=== PATIENT | male | born 1945 | race Caucasian/White ===

== ENCOUNTER 2017-07-23 07:37 | Day surgery (SDC) | payer MEDICARE ==
[2017-07-22 12:10] VITALS: BP 180/80
[2017-07-22 12:29] LABS: BASOPHILS % (AUTO) 0.4 % (0.0-5.0); EOSINOPHILS % (AUTO) 3.5 % (0.0-8.0); HEMATOCRIT 42.6 % (42-54); LYMPHOCYTES % (AUTO) 28.7 % (21.0-51.0); MEAN CORPUSCULAR HEMOGLOBIN 31.3 pg (27.0-33.0); MEAN CORPUSCULAR HGB CONC 34.6 g/dL (32.0-36.0); MEAN CORPUSCULAR VOLUME 90.5 fL (79-99); NEUTROPHILS % (AUTO) 59.4 % (40.0-77.0); PLATELET COUNT (AUTO) 204 K/uL (130-400); RED BLOOD CELL COUNT(AUTO) 4.71 MIL/uL (4.50-6.20); RED CELL DISTRIBUTION WIDTH 13.1 % (11.0-15.5); WHITE BLOOD COUNT (AUTO) 6.1 K/uL (4.8-10.8)
[2017-07-22 12:29] LABS: APPEARANCE,URINE Clear (CLEAR); BILIRUBIN,URINE Negative (NEGATIVE); COLOR,URINE Yellow (YELLOW); GLUCOSE, URINE (UA) TRACE mg/dL (NEGATIVE); KETONES,URINE Negative (NEGATIVE); LEUKOCYTE ESTERASE ,URINE Negative (NEGATIVE); NITRATE,URINE Negative (NEGATIVE); OCCULT BLOOD,URINE Negative (NEGATIVE); PROTEIN,URINE Negative (NEGATIVE)
[2017-07-22 12:37] LABS: BACTERIA,URINE Rare /HPF (None Seen); MUCUS,URINE Few LPF (None Seen); RBC,URINE 0-1 /HPF (0-1); SQUAMOUS EPITHELIAL CELL,UR Rare /LPF (0-2); WBC,URINE 0-1 /HPF (0-1)
[2017-07-22 12:42] LABS: INR 0.95 (0.85-1.15); PARTIAL THROMBOPLASTIN TIME 25.4 SEC (26.3-35.5)
[2017-07-22 12:45] LABS: POTASSIUM 5.2 mmol/L (3.5-5.1)
[2017-07-23] VITALS (13 sets, daily range): BP systolic 111–168; BP diastolic 61–87
[~2017-07-23] VITALS: Ht 188 cm; Wt 96.6 kg
[~2017-07-23 07:37] MED LIST: ASPI-1181 PO; ATOR40TA71 PO; CARV3.12 PO; METF500T6 PO
[2017-07-23] MEDS ORDERED: SODIUM CHLORIDE 0.9% 1000ML 1,000 ML IV ONE (09:25)
[2017-07-23] MEDS ORDERED: ISOVUE-370 50ML VIAL IV ONE (10:48)
[2017-07-23] MEDS ORDERED: LIDOCAINE HCL 2% 20ML ONE (10:48)
[2017-07-23] MEDS ORDERED: HEPARIN SODIUM 1000UNIT/ML 10ML VIAL ONE (10:48)
[2017-07-23] MEDS ORDERED: IOPAMIDOL-370 100 ML VIAL IV ONE (10:48)
[2017-07-23] MEDS ORDERED: LABETALOL 20 MG/4 ML DISP.SYRIN IV ONE (10:59)
[2017-07-23] MEDS ORDERED: NITROGLYCERIN 4.1 GM SPRAY TL ONE (11:09)
[2017-07-23] MEDS ORDERED: METO25TA6 PO (11:28)
[2017-07-23] MEDS ORDERED: VALS160T2 PO (11:28)
[2017-07-23] MEDS ORDERED: INSULIN HUMULIN R 100 UNIT/ML 3ML SQ SCH (11:30)
[2017-07-23] MEDS ORDERED: GLUCAGON 1MG KIT 1 MG ML IM PRN (11:30)
[2017-07-23] MEDS ORDERED: SODIUM CHLORIDE 0.9% 10 ML VIAL IVP SCH (11:30)
[2017-07-23] MEDS ORDERED: METOPROLOL TARTRATE 25 MG TAB PO SCH (11:30)
[2017-07-23] MEDS ORDERED: DEXTROSE 50%-WATER 50 ML DISP.SYRIN IV PRN (11:30)
[2017-07-23] MEDS ORDERED: LOSARTAN 100 MG TABLET PO SCH (11:44)
== END 2017-07-23 17:49 | disposition home or self-care (01) ==
LOC: DAH 07:37
PROVIDERS: ATTEND Internal Medicine Cardiovascular Disease
DX: I25.119 Atherosclerotic heart disease of native coronary artery with unspecified angina pectoris (principal); I10 Essential (primary) hypertension; E11.9 Type 2 diabetes mellitus without complications; R78.5 Finding of other psychotropic drug in blood
CPT/HCPCS: 36415 ×2; 71045; 80048; 81001; 82948 ×2; 84132; 85025; 85610; 85730; 93005; 93458; A4606; C1760; C1894; J1644; J3490; J7030; Q9967 ×2

== ENCOUNTER 2017-08-03 11:45 | Inpatient (IN) | payer MEDICARE ==
[~2017-08-03] VITALS: Ht 188 cm; Wt 99.9 kg
[~2017-08-03 11:45] MED LIST changes: -CARV3.12 PO; -METF500T6 PO; +METO25TA6 PO; +VALS160T2 PO
[2017-08-03 12:11] LABS: BASOPHILS % (AUTO) 0.5 % (0.0-5.0); EOSINOPHILS % (AUTO) 4.1 % (0.0-8.0); HEMATOCRIT 43.4 % (42-54); LYMPHOCYTES % (AUTO) 27.3 % (21.0-51.0); MEAN CORPUSCULAR HEMOGLOBIN 31.7 pg (27.0-33.0); MEAN CORPUSCULAR VOLUME 90.6 fL (79-99); MONOCYTES % (AUTO) 7.6 % (3.0-13.0); NEUTROPHILS % (AUTO) 60.5 % (40.0-77.0); PLATELET COUNT (AUTO) 197 K/uL (130-400); RED CELL DISTRIBUTION WIDTH 13.4 % (11.0-15.5); WHITE BLOOD COUNT (AUTO) 7.7 K/uL (4.8-10.8)
[2017-08-03 12:17] LABS: HEMOGLOBIN A1C 8.5 % (4.0-6.0)
[2017-08-03 12:25] LABS: CREATININE 1.1 mg/dL (0.5-1.5); POTASSIUM 4.8 mmol/L (3.5-5.1); TOTAL PROTEIN, SERUM 7.5 g/dL (6.0-8.3)
[2017-08-03 12:42] VITALS: BP 145/73
[2017-08-03] MEDS ORDERED: METF10004 PO (12:47)
[2017-08-03 12:51] LABS: INR 0.92 (0.85-1.15); PARTIAL THROMBOPLASTIN TIME 25.2 SEC (26.3-35.5); PROTHROMBIN TIME 9.7 SEC (9.6-11.6)
[2017-08-04] VITALS (14 sets, daily range): BP systolic 94–180; BP diastolic 44–70
[2017-08-04] MEDS: CEFUROXIME SODIUM 1.5 GM VIAL IVP SCH ×2 (07:30→16:15)
[2017-08-04] MEDS ORDERED: MILRINONE-D5W 20 MG/100 ML 0 ML IV ONE (08:35)
[2017-08-04] MEDS ORDERED: NOREPINEPHRINE BITARTRATE 1 MG/1 ML ML IV ONE (08:35)
[2017-08-04] MEDS ORDERED: GLYCOPYRROLATE 0.2 MG/ML 5 ML VIAL ONE (08:35)
[2017-08-04] MEDS ORDERED: ROCURONIUM BROMIDE 10MG/1ML 5ML VL ONE ×3 (08:35→18:53)
[2017-08-04] MEDS ORDERED: PROPOFOL 10 MG/ML 20ML VIAL IV ONE (08:35)
[2017-08-04] MEDS ORDERED: HEPARIN SODIUM 1000UNIT/ML 10ML VIAL ONE (08:35)
[2017-08-04] MEDS ORDERED: EPINEPHRINE 1 MG/ML AMPULE ONE (08:35)
[2017-08-04] MEDS ORDERED: AMIODARONE HCL 900MG/18ML IV ONE ×2 (08:35→22:17)
[2017-08-04] MEDS ORDERED: LIDOCAINE PF 2% 5ML ABBOJECT ONE ×2 (08:35→18:34)
[2017-08-04] MEDS ORDERED: PROTAMINE SULFATE 10 MG/ML 25ML VIAL IV ONE (08:35)
[2017-08-04] MEDS ORDERED: AMINOCAPROIC ACID 250 MG/ML 20 ML VIAL IV ONE (08:35)
[2017-08-04] MEDS ORDERED: ESMOLOL HCL 10 MG/ML 10 ML VIAL ONE (08:35)
[2017-08-04] MEDS ORDERED: MIDAZOLAM HCL 1 MG/ML 5ML VIAL ONE (08:36)
[2017-08-04] MEDS ORDERED: FENTANYL CITRATE PF 50 MCG/1 ML 5ML AMP IV ONE ×4 (08:37→18:44)
[2017-08-04] MEDS ORDERED: OCTYL 2-CYANOACRYLATE 1 EACH TP ONE (09:34)
[2017-08-04] MEDS ORDERED: PAPAVERINE HCL 30 MG/ML 2ML VIAL ONE (09:34)
[2017-08-04] MEDS ORDERED: BACITRACIN 50,000 UNIT VIAL ONE (09:35)
[2017-08-04] MEDS ORDERED: SODIUM CHLORIDE 0.9% 1000ML 1,000 ML IV ONE (09:55)
[2017-08-04] MEDS ORDERED: NITROGLYCERIN 50 MG/D5% WATER 1 BOT ONE (09:56)
[2017-08-04] MEDS ORDERED: THROMBIN-JMI 5000 UNIT/VIAL TP ONE (16:57)
[2017-08-04 17:11] LABS: ABG BASE EXCESS -2.9 mmol/L (-2.0-3.0); ABG HCO3 21.8 mmol/L (21.0-28.0); ABG OXYGEN SATURATION 99.4 % (95.0-99.0); ABG PCO2 38 mmHg (35-48)
[2017-08-04] MEDS ORDERED: SODIUM BICARB 50MEQ 50ML VIAL ONE ×2 (17:25→18:51)
[2017-08-04 18:22] LABS: ABG BASE EXCESS -8.2 mmol/L (-2.0-3.0); ABG HCO3 17.5 mmol/L (21.0-28.0); ABG OXYGEN SATURATION 99.1 % (95.0-99.0); ABG PCO2 37 mmHg (35-48)
[2017-08-04] MEDS ORDERED: SODIUM CHLORIDE 0.9% 500ML 500 ML IV SCH (18:26)
[2017-08-04] MEDS ORDERED: NITROGLYCERIN 50 MG/D5% WATER 250 BOT IV SCH (18:30)
[2017-08-04] MEDS ORDERED: POTASSIUM PHOS 15 mMOL+NS250ML 250 ML IV PRN (18:30)
[2017-08-04] MEDS ORDERED: HYDROCODONE/ACETAMINOPHEN 5/325 MG TAB PO PRN (18:30)
[2017-08-04] MEDS ORDERED: INSULIN REGULAR, HUMAN 3ML 100 UNIT in SODIUM CHLORIDE 0.9% 99 ML IV SCH ×2 (18:30)
[2017-08-04] MEDS ORDERED: SODIUM BICARB 8.4% 50ML SYRINGE IV PRN (18:30)
[2017-08-04] MEDS ORDERED: ACETAMINOPHEN 650 MG SUPPOSITORY RC PRN (18:30)
[2017-08-04] MEDS ORDERED: DEXTROSE 50%-WATER 50 ML DISP.SYRIN IV PRN (18:30)
[2017-08-04] MEDS ORDERED: MORPHINE SULFATE 2 MG/ML 1ML SYG IV PRN (18:30)
[2017-08-04] MEDS ORDERED: PROPOFOL 1000 MG/100 ML 100 ML IV PRN (18:30)
[2017-08-04] MEDS ORDERED: NICARDIPINE HCL 100 MG in SODIUM CHLORIDE 0.9% 100 ML IV PRN (18:30)
[2017-08-04] MEDS ORDERED: CALCIUM GLUCONATE 1 GM in SODIUM CHLORIDE 0.9% 50 ML IV PRN (18:30)
[2017-08-04] MEDS ORDERED: ALBUMIN (HUMAN) 5% 250 ML IV PRN (18:30)
[2017-08-04] MEDS ORDERED: SODIUM CHLORIDE 0.9% 1000ML 1,000 ML IV SCH (18:30)
[2017-08-04] MEDS ORDERED: NOREPINEPHRINE 4MG/NS 250ML 250 ML IV PRN (18:30)
[2017-08-04] MEDS ORDERED: EPINEPHRINE 2 MG in SODIUM CHLORIDE 0.9% 250 ML IV PRN (18:30)
[2017-08-04] MEDS ORDERED: MORPHINE SULFATE 4 MG/1ML SYG IV PRN (18:30)
[2017-08-04] MEDS ORDERED: ACETAMINOPHEN 325 MG TAB PO PRN (18:30)
[2017-08-04] MEDS ORDERED: SODIUM CHLORIDE 0.9% 10 ML VIAL IVP PRN (18:30)
[2017-08-04] MEDS ORDERED: GLUCAGON 1MG KIT 1 MG ML IM PRN (18:30)
[2017-08-04] MEDS ORDERED: SODIUM CHLORIDE 0.9% 250 ML IV PRN (18:30)
[2017-08-04] MEDS ORDERED: AMINOCAPROIC ACID 15,000 MG in SODIUM CHLORIDE 0.9% 250 ML IV SCH (18:30)
[2017-08-04] MEDS ORDERED: SODIUM BICARB 8.4% 50ML SYRINGE ONE (18:34)
[2017-08-04 18:52] LABS: ABG BASE EXCESS 0.1 mmol/L (-2.0-3.0); ABG HCO3 22.6 mmol/L (21.0-28.0); ABG PCO2 30 mmHg (35-48)
[2017-08-04 19:35] LABS: ABG BASE EXCESS -4.3 mmol/L (-2.0-3.0); ABG HCO3 18.6 mmol/L (21.0-28.0); ABG PCO2 28 mmHg (35-48)
[2017-08-04] MEDS ORDERED: POTASSIUM CHLORIDE 20MEQ/100ML 100 ML IV ONE (19:35)
[2017-08-04 20:43] LABS: HEMATOCRIT 34.7 % (42-54); MEAN CORPUSCULAR HEMOGLOBIN 31.6 pg (27.0-33.0); MEAN CORPUSCULAR VOLUME 90.2 fL (79-99); PLATELET COUNT (AUTO) 180 K/uL (130-400); RED BLOOD CELL COUNT(AUTO) 3.85 MIL/uL (4.50-6.20); RED CELL DISTRIBUTION WIDTH 13.5 % (11.0-15.5); WHITE BLOOD COUNT (AUTO) 20.3 K/uL (4.8-10.8)
[2017-08-04 20:55] LABS: MAGNESIUM 1.1 mg/dL (1.80-2.40); PHOSPHORUS 4.3 mg/dL (2.5-4.9); POTASSIUM 3.7 mmol/L (3.5-5.1)
[2017-08-04 21:05] LABS: ABG BASE EXCESS -0.4 mmol/L (-2.0-3.0); ABG OXYGEN SATURATION 98.7 % (95.0-99.0); ABG PCO2 39 mmHg (35-48)
[2017-08-04] MEDS: POTASSIUM CHLORIDE 20MEQ/100ML 100 ML IV PRN (21:12)
[2017-08-04] MEDS: FAMOTIDINE/PF 20 MG/2 ML VIAL IV SCH (21:12)
[2017-08-04] MEDS: MAGNESIUM 2GM PREMIX 50ML 50 ML IV PRN (21:31)
[2017-08-04] MEDS ORDERED: DEXTROSE 5%-WATER 500 ML IV ONE (22:19)
[2017-08-04] MEDS ORDERED: SODIUM CHLORIDE 0.9% 100 ML IV ONE (22:19)
[2017-08-04] MEDS ORDERED: AMIODARONE HCL 900 MG in DEXTROSE 5%-WATER 500 ML IV SCH (23:00)
[2017-08-04] MEDS ORDERED: AMIODARONE HCL 150 MG in DEXTROSE 5%-WATER 100 ML IV SCH (23:00)
[2017-08-04 23:18] LABS: ABG BASE EXCESS -4.8 mmol/L (-2.0-3.0); ABG HCO3 20.6 mmol/L (21.0-28.0); ABG OXYGEN SATURATION 97.4 % (95.0-99.0); ABG PCO2 40 mmHg (35-48)
[2017-08-05] VITALS (25 sets, daily range): BP systolic 111–151; BP diastolic 56–87
[2017-08-05] MEDS: POTASSIUM CHLORIDE 20MEQ/100ML 100 ML IV PRN ×2 (00:22→04:36)
[2017-08-05] MEDS: HYDROCODONE/ACETAMINOPHEN 5/325 MG TAB PO PRN ×6 (01:24→22:35)
[2017-08-05] MEDS: CEFUROXIME SODIUM 1.5 GM VIAL IVP SCH ×2 (02:15→13:21)
[2017-08-05 02:24] LABS: ABG BASE EXCESS -4.5 mmol/L (-2.0-3.0); ABG HCO3 20.2 mmol/L (21.0-28.0); ABG PCO2 36 mmHg (35-48)
[2017-08-05] MEDS ORDERED: CEFUROXIME 1.5GM+NS 100ML 100 ML IV SCH (02:30)
[2017-08-05] MEDS: ONDANSETRON HCL 4 MG/2 ML VIAL IV PRN ×2 (02:38→09:48)
[2017-08-05 04:11] LABS: HEMATOCRIT 37.9 % (42-54); MEAN CORPUSCULAR HEMOGLOBIN 31.5 pg (27.0-33.0); MEAN CORPUSCULAR HGB CONC 35.1 g/dL (32.0-36.0); MEAN CORPUSCULAR VOLUME 89.8 fL (79-99); PLATELET COUNT (AUTO) 193 K/uL (130-400); RED BLOOD CELL COUNT(AUTO) 4.22 MIL/uL (4.50-6.20); RED CELL DISTRIBUTION WIDTH 13.1 % (11.0-15.5); WHITE BLOOD COUNT (AUTO) 16.9 K/uL (4.8-10.8)
[2017-08-05 04:21] LABS: CREATININE 1.4 mg/dL (0.5-1.5); MAGNESIUM 1.5 mg/dL (1.80-2.40); PHOSPHORUS 2.7 mg/dL (2.5-4.9); POTASSIUM 3.9 mmol/L (3.5-5.1)
[2017-08-05] MEDS: MAGNESIUM 2GM PREMIX 50ML 50 ML IV PRN (04:37)
[2017-08-05] MEDS: FAMOTIDINE/PF 20 MG/2 ML VIAL IV SCH ×2 (08:17→21:07)
[2017-08-05] MEDS: ATORVASTATIN CALCIUM 40 MG TABLET PO SCH (08:43)
[2017-08-05] MEDS: METOPROLOL TARTRATE 25 MG TAB PO SCH ×2 (08:43→21:07)
[2017-08-05] MEDS: ASPIRIN 81 MG EC TAB PO SCH (13:21)
[2017-08-05] MEDS: FUROSEMIDE 20 MG TABLET PO SCH (13:21)
[2017-08-05] MEDS ORDERED: PHARMACY COMMUNICATION MISC SCH (15:45)
[2017-08-06] VITALS (12 sets, daily range): BP systolic 98–144; BP diastolic 47–82
[2017-08-06] MEDS: CEFUROXIME SODIUM 1.5 GM VIAL IVP SCH (01:24)
[2017-08-06 04:05] LABS: MEAN CORPUSCULAR HEMOGLOBIN 32.2 pg (27.0-33.0); MEAN CORPUSCULAR HGB CONC 35.3 g/dL (32.0-36.0); MEAN CORPUSCULAR VOLUME 91.2 fL (79-99); PLATELET COUNT (AUTO) 170 K/uL (130-400); RED BLOOD CELL COUNT(AUTO) 3.95 MIL/uL (4.50-6.20)
[2017-08-06 04:13] LABS: CREATININE 1.2 mg/dL (0.5-1.5); POTASSIUM 4.4 mmol/L (3.5-5.1)
[2017-08-06 04:29] LABS: B-TYPE NATRIURETIC PEPTIDE 694 pg/mL (0-100)
[2017-08-06] MEDS: HYDROCODONE/ACETAMINOPHEN 5/325 MG TAB PO PRN ×4 (05:36→22:26)
[2017-08-06] MEDS: FAMOTIDINE/PF 20 MG/2 ML VIAL IV SCH (08:35)
[2017-08-06] MEDS: ATORVASTATIN CALCIUM 40 MG TABLET PO SCH (08:35)
[2017-08-06] MEDS: ASPIRIN 81 MG EC TAB PO SCH (08:35)
[2017-08-06] MEDS: FUROSEMIDE 20 MG TABLET PO SCH (08:35)
[2017-08-06] MEDS: METOPROLOL TARTRATE 25 MG TAB PO SCH ×2 (08:35→21:19)
[2017-08-06] MEDS ORDERED: GLUCAGON 1MG KIT 1 MG ML IM PRN (11:15)
[2017-08-06] MEDS ORDERED: DEXTROSE 50%-WATER 50 ML DISP.SYRIN IV PRN (11:15)
[2017-08-06] MEDS: INSULIN HUMULIN R 100 UNIT/ML 3ML SQ SCH ×3 (11:22→21:22)
[2017-08-06] MEDS: FAMOTIDINE 20MG TAB 20 MG TAB PO SCH (21:20)
[2017-08-07 03:28] VITALS: BP 136/69
[2017-08-07 03:35] LABS: HEMATOCRIT 36.7 % (42-54); MEAN CORPUSCULAR HEMOGLOBIN 31.7 pg (27.0-33.0); MEAN CORPUSCULAR HGB CONC 34.6 g/dL (32.0-36.0); MEAN CORPUSCULAR VOLUME 91.6 fL (79-99); PLATELET COUNT (AUTO) 164 K/uL (130-400); RED BLOOD CELL COUNT(AUTO) 4.01 MIL/uL (4.50-6.20); RED CELL DISTRIBUTION WIDTH 13.7 % (11.0-15.5); WHITE BLOOD COUNT (AUTO) 18.7 K/uL (4.8-10.8)
[2017-08-07] MEDS: HYDROCODONE/ACETAMINOPHEN 5/325 MG TAB PO PRN (03:42)
[2017-08-07] MEDS: INSULIN HUMULIN R 100 UNIT/ML 3ML SQ SCH ×4 (06:39→23:02)
[2017-08-07 07:00] VITALS: BP 142/88
[2017-08-07] MEDS ORDERED: ONDANSETRON HCL MDV 20ML 2 MG/ML VIAL ONE (07:16)
[2017-08-07] MEDS: METOPROLOL TARTRATE 25 MG TAB PO SCH ×2 (10:13→22:38)
[2017-08-07] MEDS: FAMOTIDINE 20MG TAB 20 MG TAB PO SCH ×2 (10:14→22:38)
[2017-08-07] MEDS: ATORVASTATIN CALCIUM 40 MG TABLET PO SCH (10:14)
[2017-08-07] MEDS: MAGNESIUM HYDROXIDE 30 ML/UDCUP PO PRN (10:14)
[2017-08-07] MEDS: FUROSEMIDE 20 MG TABLET PO SCH (10:14)
[2017-08-07] MEDS: ENOXAPARIN SODIUM 30 MG/0.3 ML SQ SCH (10:14)
[2017-08-07] MEDS: ASPIRIN 81 MG EC TAB PO SCH (10:14)
[2017-08-07 11:00] VITALS: BP 139/82
[2017-08-07 16:00] VITALS: BP 149/85
[2017-08-07 19:57] VITALS: BP 145/89
[2017-08-07] MEDS ORDERED: TRAMADOL HCL 50 MG TABLET PO PRN ×2 (20:30)
[2017-08-07] MEDS ORDERED: IBUPROFEN 800 MG TAB PO PRN (20:30)
[2017-08-07 21:03] LABS: APPEARANCE,URINE Cloudy (CLEAR); BILIRUBIN,URINE Negative (NEGATIVE); COLOR,URINE Yellow (YELLOW); GLUCOSE, URINE (UA) >=1000 mg/dL (NEGATIVE); KETONES,URINE Negative (NEGATIVE); LEUKOCYTE ESTERASE ,URINE Negative (NEGATIVE); NITRATE,URINE Negative (NEGATIVE); OCCULT BLOOD,URINE Small (NEGATIVE); PROTEIN,URINE Trace (NEGATIVE)
[2017-08-07 21:10] LABS: BACTERIA,URINE Rare /HPF (None Seen); RBC,URINE 0-1 /HPF (0-1); SQUAMOUS EPITHELIAL CELL,UR 0-2 /LPF (0-2)
[2017-08-07] MEDS: AMIODARONE HCL 200 MG TABLET PO SCH (22:38)
[2017-08-07 23:55] VITALS: BP 149/86
[2017-08-08 03:56] VITALS: BP 143/82
[2017-08-08] MEDS: INSULIN HUMULIN R 100 UNIT/ML 3ML SQ SCH ×4 (06:16→20:42)
[2017-08-08 07:00] VITALS: BP 152/82
[2017-08-08] MEDS: ATORVASTATIN CALCIUM 40 MG TABLET PO SCH (08:03)
[2017-08-08] MEDS: FAMOTIDINE 20MG TAB 20 MG TAB PO SCH ×2 (08:03→20:46)
[2017-08-08] MEDS: ENOXAPARIN SODIUM 30 MG/0.3 ML SQ SCH (08:03)
[2017-08-08] MEDS: METOPROLOL TARTRATE 25 MG TAB PO SCH ×2 (08:03→20:46)
[2017-08-08] MEDS: FUROSEMIDE 20 MG TABLET PO SCH (08:03)
[2017-08-08] MEDS: LEVOFLOXACIN 500 MG TABLET PO SCH (08:03)
[2017-08-08] MEDS: AMIODARONE HCL 200 MG TABLET PO SCH ×2 (08:03→20:46)
[2017-08-08] MEDS: MAGNESIUM HYDROXIDE 30 ML/UDCUP PO PRN (08:03)
[2017-08-08] MEDS: ASPIRIN 81 MG EC TAB PO SCH (08:03)
[2017-08-08 11:00] VITALS: BP 138/85
[2017-08-08] MEDS: HYDROCODONE/ACETAMINOPHEN 5/325 MG TAB PO PRN ×3 (12:39→23:51)
[2017-08-08 16:29] VITALS: BP 135/86
[2017-08-08] MEDS: LOSARTAN 50 MG TABLET PO SCH (18:58)
[2017-08-08 20:07] VITALS: BP 110/69
[2017-08-08 23:42] VITALS: BP 136/95
[2017-08-09] VITALS (7 sets, daily range): BP systolic 140–166; BP diastolic 75–97
[2017-08-09 03:45] LABS: HEMATOCRIT 37.3 % (42-54); MEAN CORPUSCULAR HEMOGLOBIN 31.5 pg (27.0-33.0); MEAN CORPUSCULAR HGB CONC 34.4 g/dL (32.0-36.0); MEAN CORPUSCULAR VOLUME 91.3 fL (79-99); NUCLEATED RED BLOOD CELLS 0.1 % (0.0-0.19); PLATELET COUNT (AUTO) 222 K/uL (130-400); RED BLOOD CELL COUNT(AUTO) 4.08 MIL/uL (4.50-6.20); RED CELL DISTRIBUTION WIDTH 13.3 % (11.0-15.5); WHITE BLOOD COUNT (AUTO) 9.8 K/uL (4.8-10.8)
[2017-08-09 03:49] LABS: CREATININE 1.2 mg/dL (0.5-1.5); POTASSIUM 3.9 mmol/L (3.5-5.1)
[2017-08-09] MEDS: INSULIN HUMULIN R 100 UNIT/ML 3ML SQ SCH ×4 (07:30→21:00)
[2017-08-09] MEDS: AMIODARONE HCL 200 MG TABLET PO SCH ×2 (09:24→21:45)
[2017-08-09] MEDS: FUROSEMIDE 20 MG TABLET PO SCH (09:24)
[2017-08-09] MEDS: LOSARTAN 50 MG TABLET PO SCH (09:24)
[2017-08-09] MEDS: ASPIRIN 81 MG EC TAB PO SCH (09:24)
[2017-08-09] MEDS: FAMOTIDINE 20MG TAB 20 MG TAB PO SCH ×2 (09:24→21:42)
[2017-08-09] MEDS: LEVOFLOXACIN 500 MG TABLET PO SCH (09:24)
[2017-08-09] MEDS: METOPROLOL TARTRATE 25 MG TAB PO SCH (09:24)
[2017-08-09] MEDS: ENOXAPARIN SODIUM 40 MG/0.4 ML SYRINGE SQ SCH (09:25)
[2017-08-09] MEDS ORDERED: METOPROLOL TARTRATE 50 MG TAB PO SCH (11:30)
[2017-08-09] MEDS: HYDROCODONE/ACETAMINOPHEN 5/325 MG TAB PO PRN ×2 (14:33→23:42)
[2017-08-09] MEDS ORDERED: BISACODYL 5 MG TABLET.DR PO PRN (20:00)
[2017-08-09] MEDS ORDERED: ATORVASTATIN CALCIUM 40 MG TABLET PO SCH (21:00)
[2017-08-09] MEDS: METOPROLOL TARTRATE 50 MG TAB PO SCH (21:44)
[2017-08-10 03:34] VITALS: BP 151/73
[2017-08-10 07:00] VITALS: BP 149/69
[2017-08-10] MEDS: INSULIN HUMULIN R 100 UNIT/ML 3ML SQ SCH ×3 (07:30→16:27)
[2017-08-10] MEDS: ENOXAPARIN SODIUM 40 MG/0.4 ML SYRINGE SQ SCH (07:54)
[2017-08-10] MEDS: LEVOFLOXACIN 500 MG TABLET PO SCH (08:00)
[2017-08-10] MEDS: FAMOTIDINE 20MG TAB 20 MG TAB PO SCH (08:00)
[2017-08-10] MEDS: METOPROLOL TARTRATE 50 MG TAB PO SCH (08:01)
[2017-08-10] MEDS: AMIODARONE HCL 200 MG TABLET PO SCH (08:01)
[2017-08-10] MEDS: FUROSEMIDE 20 MG TABLET PO SCH (08:01)
[2017-08-10] MEDS: ASPIRIN 81 MG EC TAB PO SCH (08:01)
[2017-08-10] MEDS ORDERED: LOSARTAN 50 MG TABLET PO SCH (09:00)
[2017-08-10] MEDS ORDERED: RIVAROXABAN 20 MG TABLET PO SCH (09:00)
[2017-08-10] MEDS ORDERED: MAGNESIUM CITRATE 296 ML SOLUTION PO SCH (09:15)
[2017-08-10] MEDS ORDERED: METO50 PO (10:04)
[2017-08-10] MEDS ORDERED: FURO20TA6 PO (10:04)
[2017-08-10] MEDS ORDERED: LOSA50TA2 PO (10:04)
[2017-08-10 11:31] VITALS: BP 149/97
[2017-08-10 16:33] VITALS: BP 148/73
== END 2017-08-10 17:41 | disposition home or self-care (01) | DRG 236 ==
LOC: EDSTATUS 11:45 → DAHIP 08-04 09:10 → 2CV 08-04 19:57 → 2CH 08-05 05:51 → 2AH 08-06 06:23 → 2DH 08-08 15:14
PROVIDERS: ADMIT Thoracic Surgery (Cardiothoracic Vascular Surgery); ATTEND Thoracic Surgery (Cardiothoracic Vascular Surgery)
PROC: 0BH17EZ Insertion of Endotracheal Airway into Trachea, Via Natural or Artificial Opening (ICD-10-PCS; 2017-08-04)
PROC: 5A1935Z Respiratory Ventilation, Less than 24 Consecutive Hours (ICD-10-PCS; 2017-08-04)
PROC: 02100Z9 Bypass Coronary Artery, One Artery from Left Internal Mammary, Open Approach (ICD-10-PCS; principal; 2017-08-04 11:00)
PROC: 021209W Bypass Coronary Artery, Three Arteries from Aorta with Autologous Venous Tissue, Open Approach (ICD-10-PCS; 2017-08-04 11:00)
PROC: 06BQ4ZZ Excision of Left Saphenous Vein, Percutaneous Endoscopic Approach (ICD-10-PCS; 2017-08-04 11:00)
DX: I25.119 Atherosclerotic heart disease of native coronary artery with unspecified angina pectoris (principal); I11.0 Hypertensive heart disease with heart failure; I48.0 Paroxysmal atrial fibrillation; I50.32 Chronic diastolic (congestive) heart failure; J98.11 Atelectasis; E11.9 Type 2 diabetes mellitus without complications; E78.00 Pure hypercholesterolemia, unspecified; E78.5 Hyperlipidemia, unspecified; Z79.01 Long term (current) use of anticoagulants; Z79.82 Long term (current) use of aspirin; Z79.84 Long term (current) use of oral hypoglycemic drugs; Z79.899 Other long term (current) drug therapy
CPT/HCPCS: 36415; 36600; 71045; 71046; 80048; 80053; 81001; 82330; 82435; 82803; 82947; 82948; 83036; 83605; 83735; 83880; 84100; 84132; 84295; 85018; 85025; 85027; 85347; 85610; 85730; 86850; 86900; 86901; 86922; 87040; 87088; 87186; 93005; 94002; 94010; 94150; 97039; A4218; A7048; J0171; J0282; J0697; J1644; J1650; J1815; J2001; J2250; J2260; J2405; J2440; J2704; J2720; J3010; J3475; J3480; J3490; J7030; J7040; J7060; P9045

== ENCOUNTER → 2019-09-21 | Outpatient (CLI) | payer MEDICARE ==
[~2019-09-21] MED LIST changes: +FURO20TA6 PO; +LOSA50TA2 PO; +METF-446 PO; +METO50 PO; -VALS160T2 PO
== END | disposition home or self-care (01) ==
LOC: SHCH 12:49
PROVIDERS: ATTEND Internal Medicine Cardiovascular Disease
DX: I65.23 Occlusion and stenosis of bilateral carotid arteries (principal)
CPT/HCPCS: 93880